=== PATIENT | female | born 1940 | race Caucasian/White ===

== ENCOUNTER → 2018-05-10 | Outpatient (CLI) | payer MEDICARE ==
[~2018-05-10] MED LIST: ALPRAZOLAM0.25 MG PO; AMBIEN5 MG PO; BUMETANIDE1 MG PO; FLECAINIDE ACE100 MG PO; GAS X PO; IOPAMIDOL 300 MG/ML 15ML VIAL IT ONE; LANSOPRAZOLE30 MG PO; METHSCOPOLAMIN2.5 MG PO; METOPROLOL TART25 MG PO; PENTASA500 MG PO; PRAVASTATIN SOD40 MG PO; ULTRAM50 MG PO; VITAMIN D1000 UNIT PO
--- NOTE | 2018-05-11 17:02 | Diagnostic Imaging Report ---
Date and Time: 05/10/2018 Procedure: Left shoulder arthrogram coping machine operator: Dr. Sifuentes Pre-operative diagnosis: Left shoulder pain Post-operative diagnosis: Left shoulder pain Conscious Sedation: None The patient's heart rate and pulse oximetry were continuously monitored by the interventional radiology nurse. Blood pressure was monitored at 5 minute intervals. Additional Medications: Lidocaine 1% for local anesthesia Fluoroscopy time: Not recorded due to equipment error Contrast used: 5 cc Isovue-300 Estimated blood loss: Minimal Specimens: None Implants: None DISCUSSION: Informed consent was obtained and documented in the medical record after discussion of risks and benefits. The patient was placed in the supine position on the angiographic table. The anterior left shoulder was prepped and draped in standard sterile fashion. 1% lidocaine was infiltrated into the skin and subcutaneous tissues for local anesthesia. Then under intermittent fluoroscopic guidance a 22-gauge spinal needle was advanced to the superomedial surface of the humeral head. A total of 10 cc of dilute Isovue-300 contrast material were then injected. The needle was removed. Spot images were obtained in neutral, internal and external rotation, and abduction of the left shoulder. A sterile dressing was applied after the needle was removed. The patient tolerated the procedure well without immediate complication. FINDINGS: Appropriate egress of contrast material throughout the glenohumeral joint without evidence of full-thickness rotator cuff tear. 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 Left-sided implantable cardiac device partially visualized. IMPRESSION: Successful left shoulder arthrogram. Moderate acromioclavicular degenerative arthrosis. No full-thickness rotator cuff tear or other arthrographic abnormality. Signed by: Dr. Rob Sifuentes M.D. on 05/11/2018 4:58 PM
== END ==
LOC: DX 08:48
PROVIDERS: ATTEND Specialist
DX: S46.022A Laceration of muscle(s) and tendon(s) of the rotator cuff of left shoulder, initial encounter (principal)
CPT/HCPCS: 23350; 77002; Q9967

== ENCOUNTER 2020-02-24 10:54 | Emergency (ER) | payer MEDICARE ==
[~2020-02-24] VITALS: Ht 172.7 cm; Wt 96.2 kg
[~2020-02-24 10:54] MED LIST changes: -IOPAMIDOL 300 MG/ML 15ML VIAL IT ONE
--- OUTSIDE RECORDS SUMMARY | 2020-02-24 10:59 | XMS REPORT ---
Author Author NAHEED STONE Organization Unknown Address Unknown Phone Care Team Providers Care Global Transportation Manager Name Role Phone APARNA STONE PP Unavailable Reason for Referral No Reason for Referral was given. History of Present Illness No HPI available. Problems * Hyperlipidemia (272.4); (Active) * Normal Routine History And Physical Senior Citizen (65-80) (V70.0); ( Active) * Cerumen Impaction In The Right Ear (380.4); (Active) * Cerumen Impaction (380.4); (Active) Medication * Pentasa 250 MG Oral Capsule Extended Release; TAKE 1 CAPSULE TWICE DAILY. (Active) * ALPRAZolam 0.25 MG Oral Tablet; TAKE 1 TABLET DAILY NEEDED. (Active) * Tambocor 50 MG TABS; TAKE 1 TABLET DAILY. (Active) * Premarin 0.3 MG Oral Tablet; TAKE 1 TABLET DAILY. (Active) * Prevacid 30 MG Oral Capsule Delayed Release; TAKE 1 CAPSULE DAILY. (Active) * Pamine 2.5 MG Oral Tablet; Take one tablet twice daily (Active) * Pravastatin Sodium 40 MG Oral Tablet; TAKE 1 TABLET DAILY.; Start Date: ; End Date: (Active) * TraMADol HCl 50 MG Oral Tablet; 1 tablet PRN (Active) * Gas-X CAPS; TAKE DIRECTED. (Active) * Vitamin D 1000 UNIT Oral Capsule; TAKE DIRECTED. (Active) * Zetia 10 MG Oral Tablet; TAKE 1 TABLET DAILY.; Start Date: ; End Date: (Active) * Metoprolol Tartrate 25 MG Oral Tablet; TAKE 1 TABLET DAILY. (Active) * Ambien 5 MG Oral Tablet; TAKE 1 TABLET AT BEDTIME NEEDED FOR INSOMNIA. (Active) Allergies and Adverse Reactions * Sulfa Drugs (Active) * Aspirin TABS (Active) * Demerol TABS (Active) * Nitrolingual SOLN (Active) * EPINEPHrine HCl SOLN (Active) * Dexamethasone TABS (Active) Past Medical History * History of Vaccines Prophylactic Need Against Influenza (V04.81); ( Resolved) * History of Supraventricular Tachycardia (427.89); (Resolved) * History of Panic Disorder Without Agoraphobia (300.01); (Resolved) * History of Tendonitis (726.90); (Resolved) * History of Vertigo (780.4); (Resolved) * History of Urticaria (708.9); (Resolved) * History of Upper Respiratory Infection (465.9); (Resolved) * History of Fatigue (780.79); (Resolved) * History of Cerumen Impaction (380.4); (Resolved) Procedures Procedure Procedure Date Date Completed Status Pacemaker Placement - - Resolved Tonsillectomy With Adenoidectomy - - Resolved Appendectomy - - Resolved Cholecystectomy - - Resolved Back Surgery - - Resolved Hysterectomy - - Resolved Immunization * Fluzone Intramuscular Injectable (Lot #: [id number]) - Administered on: 06/24/2013 Family History * Family history of Acute Myocardial Infarction (V17.3); (Active) Social History * Former Smoker Comments: smoked 1 pack/day, quit 1994 (V15.82); (Active) Treatment Plan * [QLH] CBC (INCLUDES DIFF/PLT) 08/24/2013 Routine * [QLH] CMP W/EGFR 08/24/2013 Routine * [QLH] LIPID PANEL 08/24/2013 Routine * [QLH] SED RATE BY MODIFIED WESTERGREN 08/24/2013 Routine * [QL] CARDIO CRP(R) 08/24/2013 Routine Advance Directives * No Advance Directives available. Encounters * AUDIT 08/24/2013
--- OUTSIDE RECORDS SUMMARY | 2020-02-24 10:59 | XMS REPORT ---
Author Author NAHEED Cohen Boom Organization Unknown Address Unknown Phone Care Team Providers Care Clamper Name Role Phone Rita Cohen PP Unavailable Reason for Referral No Reason for Referral was given. History of Present Illness No HPI available. Problems * Hyperlipidemia (272.4); (Active) * Normal Routine History And Physical Senior Citizen (65-80) (V70.0); ( Active) * Cerumen Impaction In The Right Ear (380.4); (Active) * Cerumen Impaction (380.4); (Active) * Hypertension (401.9); (Active) * Fatigue (780.79); (Active) * Crohn's Disease (555.9); (Active) Medication * Pentasa 250 MG Oral [...] Take one tablet twice daily (Active) * Zetia 10 MG Oral Tablet; TAKE 1 TABLET DAILY.; Start Date: ; End Date: (Active) * Pravastatin Sodium 40 MG Oral Tablet; TAKE 1 TABLET DAILY.; Start Date: ; End Date: (Active) * Gas-X CAPS; TAKE DIRECTED. (Active) * Vitamin D 1000 UNIT Oral Capsule; TAKE DIRECTED. (Active) * Ambien 5 MG Oral Tablet; TAKE 1 TABLET AT BEDTIME NEEDED FOR INSOMNIA. (Active) * Metoprolol Tartrate 25 MG Oral Tablet; TAKE 1 TABLET DAILY. (Active) * TraMADol HCl 50 MG Oral Tablet; 1 po BID prn; Start Date: ; End Date: (Active) Allergies and Adverse Reactions * Sulfa [...] Immunization * Fluzone Intramuscular Injectable (Lot #: [id number]) - Administered on: 06/24/2013 Family History * Family history of Acute Myocardial Infarction (V17.3); (Active) Social History * Former Smoker Comments: smoked 1 pack/day, quit 1994 (V15.82); (Active) Advance Directives * No Advance Directives available. Encounters * AUDIT 09/21/2013
--- OUTSIDE RECORDS SUMMARY | 2020-02-24 10:59 | XMS REPORT ---
Author Author NAHEED Castro Organization Unknown Address Unknown Phone Care Team Providers Care Chief Enterprise Architect Name Role Phone MatthewHaydee PP Unavailable Reason for Referral No Reason for Referral was given. History of Present Illness No HPI available. Problems * Hyperlipidemia (272.4); (Active) * Normal Routine History And Physical Senior Citizen (65-80) (V70.0); ( Active) * Cerumen Impaction In The Right Ear (380.4); (Active) * Hypertension (401.9); (Active) * Fatigue (780.79); (Active) * Crohn's Disease (555.9); (Active) * Vaccines Prophylactic Need (V05.9); (Active) * Cellulitis Of The Arm (682.3); (Active) * Dermatitis Due To Drugs And Medicines (693.0); (Active) Medication * Pentasa 250 MG Oral Capsule Extended Release; TAKE 1 CAPSULE TWICE DAILY. (Active) * ALPRAZolam 0.25 MG Oral Tablet; TAKE 0.5 TABLET TWICE DAILY (Active) * Premarin 0.3 MG Oral Tablet; TAKE 1 TABLET DAILY. (Active) * Zetia 10 MG Oral Tablet; TAKE 1 TABLET DAILY.; Start Date: ; End Date: (Active) * Pravastatin Sodium 40 MG Oral Tablet; TAKE 1 TABLET DAILY.; Start Date: ; End Date: (Active) * Gas-X CAPS; TAKE DIRECTED. (Active) * Vitamin D 1000 UNIT Oral Capsule; TAKE DIRECTED. (Active) * Metoprolol Tartrate 25 MG Oral Tablet; TAKE 1 TABLET DAILY. (Active) * Flecainide Acetate 50 MG Oral Tablet; TAKE 1 TABLET TWICE DAILY. (Active) * TraMADol HCl 50 MG Oral Tablet; TAKE 1 TABLET BY MOUTH TWICE DAILY NEEDED; Start Date: 11/07/2013; End Date: (Active) * Methscopolamine [place] 2.5 MG Oral Tablet; TAKE 1 TABLET TWICE DAILY (Active) * Lansoprazole 30 MG Oral Capsule Delayed Release; TAKE 1 CAPSULE DAILY. (Active) * Zolpidem Tartrate 5 MG Oral Tablet; TAKE 1 TABLET AT BEDTIME NEEDED. (Active) * Mupirocin 2 % External Ointment; APPLY SPARINGLY TO AFFECTED AREA(S) TWICE DAILY; Start Date: 11/03/2013; End Date: (Active) * Levocetirizine Dihydrochloride 5 MG Oral Tablet; TAKE 1 TABLET DAILY.; Start Date: 11/11/2013; End Date: 12/11/2013 (Active) * Amoxicillin-Pot Clavulanate 875-125 MG Oral Tablet; TAKE 1 TABLET EVERY 12 HOURS UNTIL GONE.; Start Date: 11/11/2013; End Date: 11/21/2013 (Active) Allergies and Adverse Reactions * Sulfa Drugs (Active) * Aspirin TABS (Active) * Demerol TABS (Active) * Nitrolingual SOLN (Active) * EPINEPHrine HCl SOLN (Active) * Clindamycin (Active) Past Medical History * History of [...] Immunization * Fluzone Intramuscular Injectable (Lot #: [id number]) - Administered on: 06/24/2013 * Tdap (Lot #: [id number]) - Administered on: 11/03/2013 Family History * Family history of Acute Myocardial Infarction (V17.3); (Active) Social History * Former Smoker Comments: smoked 1 pack/day, quit 1994 (V15.82); (Active) Advance Directives * No Advance Directives available. Encounters * AUDIT 11/11/2013
--- OUTSIDE RECORDS SUMMARY | 2020-02-24 10:59 | XMS REPORT ---
Author Author NAHEED Del Real Organization Unknown Address Unknown Phone Care Team Providers Care Box Sealing Machine Catcher Name Role Phone Shaunvictor hugo Roxanna PP Reason for Referral No Reason for Referral was given. History of Present Illness No HPI available. Problems * Normal Routine History And Physical Senior Citizen (65-80) (V70.0); ( Active) * Hyperlipidemia (272.4); (Active) Medication * Pentasa 250 MG Oral [...] Take one tablet twice daily (Active) * Ambien 5 MG Oral Tablet; TAKE 1 TABLET AT BEDTIME NEEDED FOR INSOMNIA. (Active) * Zetia 10 MG Oral Tablet; TAKE 1 TABLET DAILY. (Active) * Metoprolol Tartrate 25 MG Oral Tablet; TAKE 1 TABLET DAILY. (Active) Allergies and Adverse Reactions * Sulfa [...] Immunization * Fluzone Intramuscular Injectable (Lot #: [id number]) - Administered on: 06/24/2013 Family History * Family history of Acute Myocardial Infarction (V17.3); (Active) Social History * Former Smoker Comments: smoked 1 pack/day, quit 1994 (V15.82); (Active) Advance Directives * No Advance Directives available. Encounters * AUDIT 08/23/2013 * ECL, Provider: APARNA STONE, Status: Toy, Time: 8:30 AM 08/24/2013
--- OUTSIDE RECORDS SUMMARY | 2020-02-24 10:59 | XMS REPORT ---
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 (Active) * ALPRAZolam 0.25 MG Oral Tablet; TAKE 0.5 TABLET TWICE DAILY (Active) * Premarin 0.3 MG Oral Tablet; TAKE 1 TABLET DAILY. (Active) * Pravastatin Sodium 40 MG Oral Tablet; TAKE 1 TABLET DAILY.; Start Date: ; End Date: (Active) * Zetia 10 MG Oral Tablet; TAKE 1 TABLET DAILY.; Start Date: ; End Date: (Active) * Gas-X CAPS; TAKE DIRECTED. (Active) * Metoprolol Tartrate 25 MG Oral Tablet; TAKE 1 TABLET DAILY. (Active) * TraMADol HCl 50 MG Oral Tablet; TAKE 1 TABLET BY MOUTH TWICE DAILY NEEDED; Start Date: 11/07/2013; End Date: (Active) * Vitamin D 1000 UNIT Oral Capsule; TAKE DIRECTED. (Active) * Flecainide Acetate 50 MG Oral Tablet; TAKE 1 TABLET TWICE DAILY. 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); (Resolved) * History of Cardiac Pacemaker Programming And Iterative Adjustment Erika-Procedure (Resolved) Procedures Procedure Procedure Date Date Completed Status Pacemaker Placement - - Resolved Tonsillectomy With Adenoidectomy - - Resolved Appendectomy - - Resolved Cholecystectomy - - Resolved Back Surgery - - Resolved Hysterectomy - - Resolved Immunization * Fluzone Intramuscular Injectable (Lot #: [id number]) - Administered on: 06/24/2013 * Tdap (Lot #: [id number]) - Administered on: 11/03/2013 Family History * Family history of Acute Myocardial Infarction (V17.3); (Active) Social History * Former Smoker Comments: smoked 1 pack/day, quit 1994 (V15.82); (Active) * Being A Social Drinker (Active) * Occupation: Retired (Active) Treatment Plan * Blood Pressure 11/25/2013 Routine Advance Directives * No Advance Directives available. Encounters * AUDIT 11/25/2013
--- OUTSIDE RECORDS SUMMARY | 2020-02-24 10:59 | XMS REPORT ---
Author Author NAHEED PORTER Organization Unknown Address Unknown Phone Care Team Providers Care Telecommunication Equipment Repairer Name Role Phone TYLER PORTER PP Unavailable Reason for Referral No Reason for Referral was given. History of Present Illness No HPI available. Problems * Hyperlipidemia (272.4); (Active) * Normal Routine History And Physical Senior Citizen (65-80) (V70.0); ( Active) * Cerumen Impaction In The Right Ear (380.4); (Active) * Hypertension (401.9); (Active) * Fatigue (780.79); (Active) * Crohn's Disease (555.9); (Active) * Cellulitis Of The Arm (682.3); (Active) * Vaccines Prophylactic Need (V05.9); (Active) Medication * Pentasa 250 MG Oral [...] prn; Start Date: ; End Date: (Active) * Flecainide Acetate 50 MG Oral Tablet; TAKE 1 TABLET TWICE DAILY. (Active) * Methscopolamine [place] 2.5 MG Oral Tablet; TAKE 1 TABLET TWICE DAILY (Active) * Lansoprazole 30 MG Oral Capsule Delayed Release; TAKE 1 CAPSULE DAILY. (Active) * Zolpidem Tartrate 5 MG Oral Tablet; TAKE 1 TABLET AT BEDTIME NEEDED. (Active) * Clindamycin HCl 300 MG Oral Capsule; TAKE 1 CAPSULE 4 TIMES DAILY; Start Date: 11/03/2013; End Date: 11/13/2013 (Active) * Mupirocin 2 % External Ointment; APPLY SPARINGLY TO AFFECTED AREA(S) TWICE DAILY; Start Date: 11/03/2013; End Date: (Active) Allergies and Adverse Reactions [...] Immunization * Fluzone Intramuscular Injectable (Lot #: [id number]) - Administered on: 06/24/2013 Family History * Family history of Acute Myocardial Infarction (V17.3); (Active) Social History * Former Smoker Comments: smoked 1 pack/day, quit 1994 (V15.82); (Active) Advance Directives * No Advance Directives available. Encounters * AUDIT 11/03/2013 * FUP, Provider: TYLER PORTER, Status: Pen, Time: 1:30 PM 11/07/2013
--- OUTSIDE RECORDS SUMMARY | 2020-02-24 10:59 | XMS REPORT ---
Author Author NAHEED Riley Organization Unknown Address Unknown Phone Care Team Providers Care Sawmill Production Worker Name Role Phone Keren Riley PP Reason for Referral No Reason for Referral was given. History of Present Illness No HPI available. Problems * Normal Routine History And Physical Senior Citizen (65-80) (V70.0); ( Active) Medication * No Active Medications Allergies and Adverse Reactions * Not Known Past Medical History * History of Vaccines Prophylactic Need Against Influenza (V04.81); ( Resolved) Immunization * Fluzone Intramuscular Injectable (Lot #: [id number]) - Administered on: 06/24/2013 Advance Directives * No Advance Directives available. Encounters * AUDIT 06/24/2013
--- OUTSIDE RECORDS SUMMARY | 2020-02-24 10:59 | XMS REPORT | Continuity of Care Document ---
Author Author [employer] Organization [employer] Address Unknown Phone Unavailable Care Team Providers Care Machine Fitter Name Role Phone [employer] Unavailable Un available Problems Problem Status Onset Date Classification Date Reported Comments Source Hyperlipidemia Active 11/25/2013 [facility] Cerumen Impaction In The Right Ear Active 11/25/2013 [facility] Cerumen Impaction Active 09/21/2013 [facility] Hypertension Active 11/25/2013 [facility] Fatigue Active 11/25/2013 [facility] Crohn's Disease Active 11/25/2013 [facility] Vaccines Prophylactic Need Act celia 11/25/2013 [facility] Cellulitis Of The Arm Active 11/25/2013 [facility] Dermatitis Due To Drugs And Medicines Active 11/25/2013 [facility] San-Oswald Syndrome Active 11/25/2013 [facility] Medications Medication Details Route Status Patient Instructions Ordering Provider Order Date Source Levocetirizine Dihydrochloride 5 MG Oral Tablet ; Start Date: 11/11/2013; End Date: 12/11/2013 (Active) Active 11/11/2013 [facility] Amoxicillin-Pot Clavulanate 875-125 MG Oral Tablet ; Start Date: 11/11/2013; End Date: 11/21/2013 (Active) Active 11/11/2013 [facility] TraMADol HCl 50 MG Oral Tablet ; Start Date: 11/07/2013; End Date: (Active) Active 11/07/2013 [facility] Mupirocin 2 % External Ointment ; Start Date: 11/03/2013; End Date: (Active) Active 11/03/2013 [facility] Clindamycin HCl 300 MG Oral Capsule ; Start Date: 11/03/2013; End Date: 11/13/2013 (Active) Active 11/03/2013 [facility] Pravastatin Sodium 40 MG Oral Tablet ; Start Date: ; End Date: (Active) Inactive [facility] Zetia 10 MG Oral Tablet ; Star t Date: ; End Date: (Active) Inactive [facility] TraMADol HCl 50 MG Oral Tablet ; Start Date: ; End Date: (Active) Inactive [facility] No Active Medications No Activ e Medications Active [facility] Pentasa 250 MG Oral Capsule Extended Release (Active) Active [facility] ALPRAZolam 0.25 MG Oral Tablet (Active) Active [facility] Tambocor 50 MG TABS (Active) Active [facility] Premarin 0.3 MG Oral Tablet ( Active) Active [facility] Prevacid 30 MG Oral Capsule Delayed Release (Active) Active [facility] Pamine 2.5 MG Oral Tablet (Ac tive) Active [facility] Ambien 5 MG Oral Tablet (Acti ve) Active [facility] Zetia 10 MG Oral Tablet (Acti ve) Active [facility] Metoprolol Tartrate 25 MG Oral Tablet (Active) Active [facility] TraMADol HCl 50 MG Oral Tablet (Active) Active [facility] Gas-X CAPS (Active) Active [facility] Vitamin D 1000 UNIT Oral Capsule (Active) Active [facility] Flecainide Acetate 50 MG Oral Tablet (Active) Active [facility] Methscopolamine [place] 2.5 MG Oral Tablet (Active) Active [facility] Lansoprazole 30 MG Oral Capsule Delayed Release (Active) Active [facility] Zolpidem Tartrate 5 MG Oral Tablet (Active) Active [facility] Allergies, Adverse Reactions, Alerts Substance Category Reaction Severity Reaction type Status Date Reported Comments Source Not Known [facility] Sulfa Drugs drug allergy drug allergy Active [facility] Aspirin TABS drug allergy drug allergy Active [facility] Demerol TABS drug allergy drug allergy Active [facility] Nitrolingual SOLN drug allergy drug allergy Active [facility] EPINEPHrine HCl SOLN drug ashli rgy drug aller gy Active [facility] Dexamethasone TABS drug allergy drug allergy Active [facility] Clindamycin drug allergy drug allergy Active [facility] Immunizations Immunization Date Given Site Status Last Updated Comments Source Tdap 11/03/2013 completed [facility] Fluzone Intramuscular Injectable 06/24/2013 completed [facility] Results No Data Provided for This Section Pathology Reports No Data Provided for This Section Diagnostic Reports No Data Provided for This Section Consultation Notes No Data Provided for This Section Discharge Summaries No Data Provided for This Section History and Physicals No Data Provided for This Section Vital Signs No Data Provided for This Section Encounters Location Location Details Encounter Type Encounter Number Reason For Visit Attending Provider ADM Date DC Date Status Source AUDIT [id number] 06/24/2013 06/24/2013 [facility] AUDIT [id number] 08/23/2013 08/23/2013 [facility] BIBIANA, Provi radha: APARNA STONE, Status: Pen, Time: 8:30 AM [id number] 08/24/20 13 08/23/2013 [facility] AUDIT [id number] 08/24/2013 08/24/2013 [facility] AUDIT [id number] 09/21/2013 09/21/2013 [facility] AUDIT [id number] 11/03/2013 11/03/2013 [facility] Sandra FALCON radha: TYLER PORTER, Status: Pen, Time: 1:30 PM [id number] 11/07/19 14 11/03/2013 [facility] AUDIT [id number] 11/11/2013 11/11/2013 [facility] AUDIT [id number] 11/25/2013 11/25/2013 [facility] Procedures No Data Provided for This Section Assessment and Plan No Data Provided for This Section Plan of Care Plan of Care Date Source Blood Pressure 11/25/2013 Routine 11/25/2013 [facility] [QLH] CBC (INCLUDES DIFF/PLT) 08/24/2013 Routine[QLH] CMP W/EGFR 08/24/2013 Routine[QLH] LIPID PANEL 08/24/2013 Routine[QLH] SED RATE BY MODIFIED WESTERGREN 08/24/2013 Routine[QL] CARDIO CRP(R) 08/24/2013 Routine 08/24/2013 [facility] Social History Social History Date Source Former Smoker Comments: smoked 1 pack/da y, quit 1994 (V15.82); (Active) Being A Social Drinker (Active) Occupation: Retired (Active) 11/25/2013 [facility] Family History Value Date S ource Family history of Acute Myocardial Infar ction (V17.3); (Active) 11/25/2013 [facility] Family history of Acute Myocardial Infar ction (V17.3); (Active) 11/11/2013 [facility] Family history of Acute Myocardial Infar ction (V17.3); (Active) 11/03/2013 [facility] Family history of Acute Myocardial Infar ction (V17.3); (Active) 09/21/2013 [facility] Family history of Acute Myocardial Infar ction (V17.3); (Active) 08/24/2013 [facility] Family history of Acute Myocardial Infar ction (V17.3); (Active) 08/23/2013 [facility] Advance Directives Order Name Results Value Date Source Advance Directives Advance Dir ectives No Advance Directives available. 11/25/2013 [facility] Advance Directives Advance Dir ectives No Advance Directives available. 11/11/2013 [facility] Advance Directives Advance Dir ectives No Advance Directives available. 11/03/2013 [facility] Advance Directives Advance Dir ectives No Advance Directives available. 09/21/2013 [facility] Advance Directives Advance Dir ectives No Advance Directives available. 08/24/2013 [facility] Advance Directives Advance Dir ectives No Advance Directives available. 08/23/2013 [facility] Advance Directives Advance Dir ectives No Advance Directives available. 06/24/2013 [facility] Functional Status No Data Provided for This Section
--- NOTE | 2020-02-24 11:15 | Emergency Department Note ---
History of Present Illnes History of Present Illness Chief Complaint: General Medicine Complaints History of Present Illness This is a 80 year old female with R groin swelling following a catheterization procedure 2 days prior. Onset (how long ago): day(s) Radiation: Reports extremity Severity: mild Onset quality: gradual Duration (how long): day(s) (2) Timing of current episode: constant Progression: unchanged Chronicity: new Context: Reports recent surgery Relieving factors: none Exacerbating factors: none Associated symptoms: Reports denies other symptoms Treatments prior to arrival: none Past Medical/Family History Physician Review I have reviewed the patient's past medical and family history. Any updates have been documented here. Past Medical History Recent Fever: No Clinical Suspicion of Infectio: No New/Unexplained Change in Ment: No Past Surgical History: Pacer/AICD Social History Smoking Cessation: Never Smoker Alcohol Use: None Any Illegal Drug Use: No Review of Systems Review of Systems Constitutional: Reports no symptoms EENTM: Reports no symptoms Cardiovascular: Reports no symptoms Respiratory: Reports no symptoms Gastrointestinal: Reports no symptoms Genitourinary: Reports no symptoms Musculoskeletal: Reports no symptoms Integumentary: Reports ecchymosis Neurological: Reports no symptoms Psychological: Reports no symptoms Endocrine: Reports no symptoms Hematological/Lymphatic: Reports no symptoms Physical Exam Related Data Allergies: Coded Allergies: clindamycin (Verified Allergy, Severe, MACI NATHANIEL SYNDROME, 05/12/16) epinephrine (Verified Allergy, Severe, HIGH BP, CHEST PAIN, 05/12/16) meperidine (Verified Allergy, Severe, HIGH BP, TACHYCARDIA, 05/12/16) nitroglycerin (Verified Allergy, Severe, RASH, SWOLLEN TONGUE, 05/21/16) PT STS SHE IS ONLY ALLERGIC TO NTG WHEN USED IN CONJUNCTION WITH PHENERGAN aspirin (Verified Allergy, Mild, STOMACH PAIN, 05/12/16) promethazine (Verified Allergy, Mild, RASH, SWOLLEN TONGUE, 05/21/16) PT STS THAT SHE IS ONLY ALLERGIC TO PHENERGAN WHEN USED IN CONJUNCTION WITH NTG diphenhydramine (Unverified Adverse Reaction, AGITATION, 05/21/16) Uncoded Allergies: SULFA (Allergy, Mild, RASH, 05/12/16) Triage Vital Signs Vital Signs Date Time Temp Pulse Resp B/P (MAP) Pulse Ox O2 Delivery O2 Flow Rate FiO2 02/24/20 11:11 98.4 67 16 144/90 98 Vital signs reviewed: Yes Physical Exam CONSTITUTIONAL Constitutional: Reports well-developed, Reports well-nourished HENT HENT: Reports normocephalic, Reports atraumatic, Reports oropharynx clear/moist, Reports nose normal HENT L/R: Reports left ext ear normal, Reports right ext ear normal EYES Eyes: Reports PERRL, Reports conjunctivae normal NECK Neck: Reports ROM normal PULMONARY Pulmonary: Reports effort normal, Reports breath sounds normal CARDIOVASCULAR Cardiovascular: Reports regular rhythm, Reports heart sounds normal, Reports capillary refill normal, Reports normal rate GASTROINTESTINAL Abdominal: Reports soft, Reports nontender, Reports bowel sounds normal GENITOURINARY Genitourinary: Reports exam deferred SKIN Skin: Reports warm, Reports dry, Reports bruising (R inguinal region. No edema noted of the area) MUSCULOSKELETAL Musculoskeletal: Reports ROM normal NEUROLOGICAL Neurological: Reports alert, Reports oriented x 3, Reports no gross motor or sensory deficits PSYCHOLOGICAL Psychological: Reports mood/affect normal, Reports judgement normal Results Imaging Imaging results reviewed: Yes Impressions Arterial Duplex R inguinal region : NEG for pseudoaneuyrsm Assessment & Plan Medical Decision Making MDM 80 yof s/p 2 days Right PM placement via R femoral vein catheterization. Patient with non painful discoloration/bruising to the area. Arterial Duplex ordered to r/o pseudoaneurysm. Case d/w Dr Shepard. Plan to discharge to home. Assessment & Plan Final Impression: (1) Contusion of right groin Depart Disposition: HOME, SELF-CARE Last Vital Signs Date Time Temp Pulse Resp B/P (MAP) Pulse Ox O2 Delivery O2 Flow Rate FiO2 02/24/20 11:33 99.1 67 20 154/70 99 Home Meds Reported Medications Bumetanide (BUMETANIDE) 1 Mg Tablet, 0.5 MG PO PRN, #30 TAB 05/12/16 Cholecalciferol (Vitamin D3) (VITAMIN D) 1,000 Unit Capsule, 1000 UNIT PO DAILY 05/12/16 [Gas X] No Conflict Check, PO PRN 05/12/16 Tramadol Hcl (ULTRAM) 50 Mg Tablet, 50 MG PO PRN PRN for PAIN, TAB 05/12/16 Zolpidem Tartrate (AMBIEN) 5 Mg Tablet, 5 MG PO PRN, #30 TAB 05/12/16 Lansoprazole (LANSOPRAZOLE) 30 Mg Capsule.dr, 30 MG PO DAILY 05/12/16 Pravastatin Sodium (PRAVASTATIN SODIUM) 40 Mg Tablet, 40 MG PO DAILY 05/12/16 Metoprolol Tartrate (METOPROLOL TARTRATE) 25 Mg Tablet, 25 MG PO DAILY, TAB 05/12/16 Methscopolamine [place] (METHSCOPOLAMINE BROMIDE) 2.5 Mg Tablet, 2.5 MG PO BID 05/12/16 Flecainide Acetate (FLECAINIDE ACETATE) 100 Mg Tablet, 50 MG PO BID, #60 TAB 05/12/16 Alprazolam (ALPRAZOLAM) 0.25 Mg Tablet, 0.25 MG PO BID, TAB 05/12/16 Mesalamine (PENTASA) 500 Mg Capcr, 250 MG PO BID, CAP 05/12/16 RANDEE VILA DO Feb 24, 2020 11:15
--- NOTE | 2020-02-24 11:33 | NUR ---
ANETTE. TECH PARMINDER AT [facility]
--- NOTE | 2020-02-24 11:58 | NUR ---
VASC. REIS HAS FINISHED THE EXAM
== END 2020-02-24 12:45 | disposition home or self-care (01) ==
LOC: ER 10:54
DX: R10.31 Right lower quadrant pain (principal); S30.1XXA Contusion of abdominal wall, initial encounter; Z98.890 Other specified postprocedural states; Z95.810 Presence of automatic (implantable) cardiac defibrillator
CPT/HCPCS: 93926; 99284

== ENCOUNTER 2021-05-23 13:55 | Emergency (ER) | payer MEDICARE ==
[~2021-05-23] VITALS: Ht 172.7 cm; Wt 96.2 kg
[2021-05-23] MEDS ORDERED: MORPHINE SULFATE 15MG TAB CR PO ONE (14:15)
[2021-05-23] MEDS ORDERED: MORPHINE SULFATE ORAL SOLN 10 MG/5 ML UDC PO ONE (15:00)
[2021-05-23 15:14] LABS: BASOPHILS % 0.2 % (0.0-1.0); EOSINOPHILS # (AUTO) 0.1 (0.0-0.4); EOSINOPHILS % 0.9 % (0.0-6.0); HEMATOCRIT 42.2 % (34.2-44.1); HEMOGLOBIN 13.7 g/dL (12.0-16.0); LYMPHOCYTES # (AUTO) 1.1 (1.0-3.2); LYMPHOCYTES % 10.2 % (18.0-39.1); MEAN CORPUSCULAR HEMOGLOBIN 29.7 pg (28-32); MEAN CORPUSCULAR HGB CONC 32.5 g/dL (31-35); MEAN CORPUSCULAR VOLUME 91.5 fL (81-99); MONOCYTES # (AUTO) 0.5 (0.2-0.8); MONOCYTES % 4.7 % (4.4-11.3); NEUTROPHILS # (AUTO) 8.8 (2.1-6.9); NEUTROPHILS % 83.5 % (38.7-80.0); PLATELET COUNT 271 x10e3/uL (140-360); RED BLOOD COUNT 4.61 x10e6/uL (3.6-5.1); RED CELL DISTRIBUTION WIDTH 13.7 % (11.7-14.4)
[2021-05-23 15:31] LABS: ALBUMIN 3.9 g/dL (3.5-5.0); ALBUMIN/GLOBULIN RATIO 1.3 (0.8-2.0); ANION GAP 15.7 mmol/L (8-16); CALCIUM 9.3 mg/dL (8.4-10.2); CREATININE, SERUM 1.17 mg/dL (0.57-1.11); POTASSIUM 3.7 mmol/L (3.5-5.1)
[2021-05-23] MEDS ORDERED: PREDNISONE 20 MG TAB PO ONE (17:15)
[2021-05-23] MEDS ORDERED: MORPHINE SULFATE INJ 4 MG/ML INJ 1ML IM PRN (17:15)
[2021-05-23 17:38] VITALS: BP 115/73
[2021-05-23] MEDS ORDERED: METHOCARBAMOL500 MG PO (17:39)
[2021-05-23] MEDS ORDERED: PREDNISONE20 MG PO (17:39)
== END 2021-05-23 17:48 | disposition home or self-care (01) ==
LOC: ER 14:08
DX: M54.41 Lumbago with sciatica, right side (principal); I10 Essential (primary) hypertension; E78.5 Hyperlipidemia, unspecified; K21.9 Gastro-esophageal reflux disease without esophagitis; I50.9 Heart failure, unspecified; K50.90 Crohn's disease, unspecified, without complications; Z95.810 Presence of automatic (implantable) cardiac defibrillator
CPT/HCPCS: 36415; 74176; 80053; 85025; 99284; J7512

== ENCOUNTER 2021-06-10 10:00 | Outpatient (RCR) | payer MEDICARE ==
[~2021-06-10 10:00] MED LIST changes: +METHOCARBAMOL500 MG PO; +PREDNISONE20 MG PO
== END 2021-06-13 ==
LOC: OT 10:00
PROVIDERS: ATTEND Specialist
DX: M77.8 Other enthesopathies, not elsewhere classified (principal); S43.421A Sprain of right rotator cuff capsule, initial encounter

== ENCOUNTER 2021-07-02 14:54 | Outpatient (RCR) | payer MEDICARE | END 2021-07-14 | LOC: OT 14:54 | PROVIDERS: ATTEND Specialist | DX: M75.81 Other shoulder lesions, right shoulder (principal) ==

== ENCOUNTER → 2021-08-21 | Outpatient (CLI) | payer MEDICARE ==
[~2021-08-21] MED LIST changes: +ACETAMINOPHEN 325 MG TAB ONE; +IOPAMIDOL 200 MG/ML 20 ML VIAL IT ONE; +IOPAMIDOL 300 MG/ML 15ML VIAL IT ONE; +LIDOCAINE HCL 1% LOCAL INJ 20 ML VIAL ONE
[2021-08-21 08:45] LABS: CREATININE, SERUM 0.99 mg/dL (0.57-1.11)
[2021-08-21 08:49] LABS: INR 1.07; PROTHROMBIN TIME 14.8 seconds (11.9-14.5)
[2021-08-21 08:50] LABS: PARTIAL THROMBOPLASTIN TIME 28.1 seconds (23.8-35.5)
== END ==
LOC: DX 07:57
PROVIDERS: ATTEND Specialist
DX: M48.02 Spinal stenosis, cervical region (principal)
CPT/HCPCS: 36415; 62302; 72126; 77003; 82565; 84520; 85014; 85049; 85610; 85730; J2001; Q9967

== ENCOUNTER 2021-12-11 08:57 | Outpatient (RCR) | payer MEDICARE ==
[~2021-12-11 08:57] MED LIST changes: -ACETAMINOPHEN 325 MG TAB ONE; -IOPAMIDOL 200 MG/ML 20 ML VIAL IT ONE; -IOPAMIDOL 300 MG/ML 15ML VIAL IT ONE; -LIDOCAINE HCL 1% LOCAL INJ 20 ML VIAL ONE
== END 2021-12-12 ==
LOC: PT 08:57
PROVIDERS: ATTEND Specialist
DX: M17.12 Unilateral primary osteoarthritis, left knee (principal)

== ENCOUNTER 2022-01-10 08:59 | Outpatient (RCR) | payer MEDICARE | END 2022-01-11 | LOC: PT 08:59 | PROVIDERS: ATTEND Specialist | DX: S39.012A Strain of muscle, fascia and tendon of lower back, initial encounter (principal); M70.62 Trochanteric bursitis, left hip ==

== ENCOUNTER 2022-01-13 06:37 | Outpatient (RCR) | payer MEDICARE ==
[~2022-01-13 06:37] MED LIST changes: +SODIUM CHLORIDE 0.9% 500ML 500 ML ONE; +TRANEXAMIC ACID 20 ML ONE; +Vancomycin IV 1,000 MG ONE
== END 2022-02-11 ==
LOC: PT 06:37
PROVIDERS: ATTEND Specialist
DX: S39.012A Strain of muscle, fascia and tendon of lower back, initial encounter (principal); M70.62 Trochanteric bursitis, left hip
CPT/HCPCS: 97110; J3370; J7040

== ENCOUNTER → 2022-01-16 | Outpatient (CLI) | payer MEDICARE ==
[~2022-01-16] MED LIST changes: -SODIUM CHLORIDE 0.9% 500ML 500 ML ONE; -TRANEXAMIC ACID 20 ML ONE; -Vancomycin IV 1,000 MG ONE
== END ==
LOC: NM 07:57
PROVIDERS: ATTEND Specialist
DX: M84.352A Stress fracture, left femur, initial encounter for fracture (principal)
CPT/HCPCS: 78300; A9503; A9521; A9570

== ENCOUNTER → 2022-02-11 | Outpatient (CLI) | payer MEDICARE ==
[~2022-02-11] MED LIST changes: +IOPAMIDOL 300 MG/ML 15ML VIAL IT ONE; +LIDOCAINE HCL 1% LOCAL INJ 20 ML VIAL ONE
[2022-02-11 09:09] LABS: HEMOGLOBIN 14.1 g/dL (12.0-16.0)
[2022-02-11 09:17] LABS: PROTHROMBIN TIME 14.1 seconds (11.9-14.5)
[2022-02-11 09:18] LABS: PARTIAL THROMBOPLASTIN TIME 27.4 seconds (23.8-35.5)
== END ==
LOC: DX 08:25
PROVIDERS: ATTEND Specialist
DX: M54.32 Sciatica, left side (principal)
CPT/HCPCS: 36415; 62304; 72132; 77003; 85014; 85049; 85610; 85730; J2001; Q9967

== ENCOUNTER → 2022-05-09 | Outpatient (CLI) | payer MEDICARE ==
[~2022-05-09] MED LIST changes: -IOPAMIDOL 300 MG/ML 15ML VIAL IT ONE; -LIDOCAINE HCL 1% LOCAL INJ 20 ML VIAL ONE
== END ==
LOC: CT 14:37
PROVIDERS: ATTEND Neurological Surgery
DX: M48.062 Spinal stenosis, lumbar region with neurogenic claudication (principal)
CPT/HCPCS: 72131

== ENCOUNTER 2022-07-11 11:35 | Emergency (ER) | payer MEDICARE ==
[~2022-07-11] VITALS: Ht 172.7 cm; Wt 96.2 kg
[2022-07-11] MEDS ORDERED: SODIUM CHLORIDE 0.9% 1000ML 1,000 ML IV STA (11:40)
[2022-07-11] MEDS ORDERED: ONDANSETRON HCL INJ 2MG/ML 2ML 2 MG/ML VIAL IV STA (11:40)
[2022-07-11 11:58] LABS: BASOPHILS % 0.3 % (0.0-1.0); EOSINOPHILS # (AUTO) 0.1 (0.0-0.4); EOSINOPHILS % 1.9 % (0.0-6.0); HEMATOCRIT 38.3 % (34.2-44.1); HEMOGLOBIN 12.3 g/dL (12.0-16.0); LYMPHOCYTES # (AUTO) 1.3 (1.0-3.2); LYMPHOCYTES % 19.7 % (18.0-39.1); MEAN CORPUSCULAR HEMOGLOBIN 30.1 pg (28-32); MEAN CORPUSCULAR HGB CONC 32.1 g/dL (31-35); MEAN CORPUSCULAR VOLUME 93.6 fL (81-99); MONOCYTES # (AUTO) 0.4 (0.2-0.8); MONOCYTES % 6.9 % (4.4-11.3); NEUTROPHILS # (AUTO) 4.5 (2.1-6.9); PLATELET COUNT 258 x10e3/uL (140-360); RED BLOOD COUNT 4.09 x10e6/uL (3.6-5.1)
[2022-07-11 12:25] LABS: ALBUMIN 3.3 g/dL (3.5-5.0); ALBUMIN/GLOBULIN RATIO 1.3 (0.8-2.0); ANION GAP 12.3 mmol/L (8-16); CALCIUM 8.6 mg/dL (8.4-10.2); CREATININE, SERUM 0.84 mg/dL (0.57-1.11); POTASSIUM 3.3 mmol/L (3.5-5.1)
[2022-07-11 12:32] LABS: CREATINE KINASE MB 0.6 ng/mL (0-5.0)
[2022-07-11 13:03] LABS: CLARITY,URINE CLEAR (CLEAR); COLOR,URINE YELLOW (YELLOW); KETONES,URINE NEGATIVE (NEGATIVE); LEUKOCYTE ESTERASE ,URINE NEGATIVE (NEGATIVE); NITRITE,URINE NEGATIVE (NEGATIVE); PROTEIN,URINE DIPSTICK NEGATIVE (NEGATIVE); URINE UROBILINOGEN 0.2 mg/dL (0.2 - 1)
[2022-07-11 13:23] LABS: BACTERIA,URINE MODERATE /HPF; EPITHELIAL CELLS,URINE FEW /LPF
[2022-07-11 13:24] LABS: MUCUS,URINE FEW (RARE)
[2022-07-11] MEDS ORDERED: AUGMENTIN 500-1 EACH PO (13:39)
[2022-07-11] MEDS ORDERED: ACETAMINOPHEN 325 MG TAB PO STA (13:42)
[2022-07-11 14:16] VITALS: BP 128/73
== END 2022-07-11 14:17 | disposition home or self-care (01) ==
LOC: ER 11:39
DX: R55 Syncope and collapse (principal); N39.0 Urinary tract infection, site not specified; I10 Essential (primary) hypertension; E78.5 Hyperlipidemia, unspecified; I50.9 Heart failure, unspecified; K21.9 Gastro-esophageal reflux disease without esophagitis; R94.31 Abnormal electrocardiogram [ECG] [EKG]; Z20.822 Contact with and (suspected) exposure to COVID-19; Z95.810 Presence of automatic (implantable) cardiac defibrillator; Z87.19 Personal history of other diseases of the digestive system
CPT/HCPCS: 0223U; 36415; 70450; 71045; 80053; 81001; 82550; 82553; 84484; 85025; 93005; 99284; J2405; J7030